=== PATIENT | female | born 1985 | race Asian ===

== ENCOUNTER 2018-11-11 12:32 | Observation (INO) | payer OTHER ==
[~2018-11-11] VITALS: Ht 160 cm; Wt 56.7 kg
[2018-11-11] MEDS ORDERED: LACTATED RINGERS 1,000 ML IV SCH (14:00)
[2018-11-11 14:33] LABS: CLARITY URINE CLEAR (CLEAR); COLOR URINE YELLOW (YELLOW); KETONES URINE NEGATIVE (NEGATIVE); LEUKOCYTE ESTERASE URINE NEGATIVE (NEGATIVE); NITRITE URINE NEGATIVE (NEGATIVE); OCCULT BLOOD URINE 2+ (NEGATIVE); PH URINE 7.5 (4.5-8.0); PROTEIN URINE NEGATIVE (NEGATIVE); SPECIFIC GRAVITY URINE 1.009 (1.005-1.030); UROBILINOGEN URINE 0.2 E.U./dL (0.2-1.0)
== END 2018-11-11 16:13 | disposition home or self-care (01) ==
LOC: 8 EST LDRP 12:32
PROVIDERS: ADMIT Specialist; ATTEND Specialist
DX: O26.892 Other specified pregnancy related conditions, second trimester (principal); R10.31 Right lower quadrant pain; R19.7 Diarrhea, unspecified; Z3A.22 22 weeks gestation of pregnancy
CPT/HCPCS: 81003; 96360; 96361; 99281; G0378; J7120

== ENCOUNTER 2018-11-11 16:46 | Emergency (ER) | payer OTHER ==
[~2018-11-11] VITALS: Ht 160 cm; Wt 57.0 kg
[2018-11-11] MEDS ORDERED: SODIUM CHLORIDE 0.9% 1,000 ML IV ONE (22:38)
[2018-11-11 23:26] LABS: BASOPHILS % 0.3 % (0.0-2.0); EOSINOPHILS % 2.4 % (0.0-5.0); HEMATOCRIT. 32.8 % (36.0-48.0); LYMPHOCYTES % 27.6 % (20.0-50.0); MEAN CORPUSCULAR HEMOGLOBIN 29.3 pg (28.0-32.0); MEAN CORPUSCULAR VOLUME 87.4 fL (81.0-99.0); MEAN PLATELET VOLUME 8.5 fl (7.4-10.4); MONOCYTES % 5.7 % (2.0-8.0); PLATELET 256 x1000/uL (130-400); RED BLOOD CELL COUNT 3.75 mill/uL (4.2-5.4); RED CELL DISTRIBUTION WIDTH 14.9 % (11.6-14.6)
[2018-11-11 23:31] LABS: CHLORIDE 106 mEq/L (98-107)
[2018-11-12 00:19] LABS: PROTHROMBIN TIME 10.3 sec (9.1-11.1)
[2018-11-12] MEDS ORDERED: DEXT 5%/0.45% NACL KCL 10MEQ/L 1,000 ML IV SCH (04:00)
[2018-11-12 09:14] VITALS: BP 116/73
== END 2018-11-12 09:18 | disposition home or self-care (01) ==
LOC: ER 16:46 → SUPCPDRO 11-12 05:32 → CANRESERV 11-12 08:01 → ENRESERV 11-12 08:01 → CANBEDREQ 11-12 08:55 → ER 11-12 09:18
DX: O26.892 Other specified pregnancy related conditions, second trimester (principal); R10.31 Right lower quadrant pain; O99.012 Anemia complicating pregnancy, second trimester; Z3A.22 22 weeks gestation of pregnancy
CPT/HCPCS: 36415; 74181; 76857; 80053; 83690; 85025; 85610; 86850; 86900; 86901; 96361; 96365; 96366; 99284; J7030